=== PATIENT | female | born 1985 | race Caucasian/White ===

== ENCOUNTER 2024-08-29 17:39 | Emergency (ER) | payer OTHER, SELFPAY ==
[2024-08-29 17:59] VITALS: BP 183/85; PULSE 107; RESP 20; TEMP 36.8; O2SAT 97
--- NOTE | 2024-08-29 18:11 | ED_ITS ---
HPI - URI/Sore Throat General Chief Complaint: Upper Respiratory Infection Stated Complaint: Runny Nose/Cough/Congestion History of Present Illness HPI Narrative: patient is a 39-year-old female co past medical history significant for hypertension, presents to [facility] with 3 day history of URI symptoms, including nasal congestion, bilateral otalgia, sore throat and a dry cough. Her son is here as a patient as well and he has had similar symptoms for 5 days. This is her only known sick contacts she is taking [id number] cold medications with some relief. She has no chest pain or shortness of breath at this tie. She does report coughing fits acute difficult for her to cut her breath and have disrupted her sleep. She denies nausea vomiting diarrhea dysuria. She is not . Related Data Allergies Allergy/AdvReac Type Severity Reaction Status Date / Time aspirin Allergy THROAT Verified 08/29/24 18:05 SWELLING Review of Systems Constitutional: Comments: [place] feverish, did not confirm temperature was elevated at home ENT: Comments: refer to HPI Respiratory: Comments: refer to HPI Exam Const: General: healthy appearing Nutritional Appearance: well nourished Orientation/consciousness: patient oriented x3 Limitations: no limitations HENMT: Head: normal to inspection Ears: external ears normal, TM's normal bilaterally and TM abnormal ( TMs are retracted bilaterally, serous pattern present) Face/Nose/Sinus: Nasal discharge present ( clear nasal discharge bilaterally) Face and sinus: normal facial exam and sinuses nontender Mouth: Yes Normal oral and palatal mucosa present, Yes lip normal and Yes moist mucous membranes Teeth and gingiva: dentition normal Throat: posterior oropharynx normal and uvula midline Other: uvula midline Eyes: Conjunctivae: conjunctivae normal Pupils: Equal, round and reactive pupils present EOM: EOMs intact bilaterally Direct Ophthalmoscopy: no photophobia Neck: Neck: normal visual inspection, no lymphadenopathy and no meningeal signs Chest: Chest palpation & inspection: normal inspection of the chest Resp: Effort & Inspection: normal respiratory effort Auscultation: clear to auscultation bilaterally Cardio: Rate: regular rate Rhythm: regular rhythm GI: GI Palp: Yes Soft to palpation Urinary Catheter: Urinary Catheter: patent and draining Back/Spine/Pelvis: Back: no CVA tenderness Skin: General skin exam: normal color Rashes: no rashes Wounds: no wounds Neuro: General: patient oriented x3, moves all extremities, no meningeal signs, no focal motor deficits and CN's II-XI intact bilaterally Cranial nerves: Yes Nystagmus not present Speech: normal speech Gait exam (Neuro): Normal gait present Extrem: General: normal to inspection and no clubbing, cyanosis or edema Psych: Affect: normal affect Attitude: cooperative Course Course Emergency Course: suspect viral URI, will treat with short steroid course, cough suppressant, continue to push fluids at home. She will monitor her blood pressure at home as well as she attributes her elevated pressure to the cold medications she has been taking at home. She will follow-up with her PCP in 3-5 Days Level of Care: Express Care Visit ([id number]) Vital Signs Vital signs: Vital Signs Temperature 36.8 C 08/29/24 17:59 Pulse Rate 107 H 08/29/24 17:59 Respiratory Rate 20 08/29/24 17:59 Blood Pressure 183/85 H 08/29/24 17:59 Pulse Oximetry 97 08/29/24 17:59 Oxygen Delivery Room Air 08/29/24 17:59 Temperature 36.8 C 08/29/24 17:59 Pulse Rate 107 H 08/29/24 17:59 Respiratory Rate 20 08/29/24 17:59 Blood Pressure 183/85 H 08/29/24 17:59 Pulse Oximetry 97 08/29/24 17:59 Oxygen Delivery Room Air 08/29/24 17:59 MDM - URI/Sore Throat MDM Narrative Medical decision making narrative: prednisone for 5 days, promethazine DM Differential Diagnosis Differential diagnosis: Likely upper respiratory infection, otitis media, sinusitis, viral infection and pharyngitis Discharge Plan Discharge Clinical Impression: Upper respiratory infection Qualifiers: URI type: unspecified URI Qualified Code(s): J06.9 - Acute upper respiratory infection, unspecified Patient Disposition: Home Condition: Stable Instructions: Antibiotic Form, Upper Respiratory Infection (ED) Additional Instructions: PUSH FLUIDS, REST, COMPLETE STEROIDS PRESCRIBED. COUGH MEDICATION DIRECTED. SEE YOUR PRIMARY DOCTOR IN 3-5 DAYS IF SYMPTOMS NOT RESOLVING. CONTINUE TO MONITOR BLOOD PRESSURE AT HOME AND FOLLOW-UP WITH YOUR PRIMARY DOCTOR IF READINGS REMAIN ELEVATED ONCE YOUR FEELING IMPROVED Patient Language: Slovenian Prescriptions: New prednisone 20 mg tablet 40 mg PO DAILY 5 Days Qty: 10 0RF promethazine-DM 6.25-15 mg/5 mL syrup 5 ml PO Q4-6H PRN (Reason: cough) Qty: 118 0RF Follow-up/Referrals: Heriberto,Corrine Oro [Primary Care Provider] - Stand Alone Forms: Work/School Release IP Time of Disposition: 18:22
--- OUTSIDE RECORDS SUMMARY | 2024-08-29 18:27 | XMS_ITS | Encounter Summary ---
Author Organization [facility] Healthcare Address [address] [place] [address] Care Team Providers Care Pest Control Applicator Name Role Phone HeribertoCorrine CARLOS Primary Care Provider [phone] Miscellaneous, Not In File Unavailable Unava ilable Encounter Details Date Type Department Care Team (Late st Contact Info) Description 09/30/2023 [facility] Post Discharge Follow up phone call [facility] [address] [place] [address] [id number] Tiffanie Prado Social History Tobacco Use Types Packs/Day Years Used Date Smoking Tobacco: Every Day Cigarettes Smokeless Tobacco: Never Alcohol Use Standard Drinks/Week Comments Yes 0 (1 standard drink = 0.6 oz pur e alcohol) occasionally [facility] Utilities Answer Date Recorded In the past 12 months has e electric, gas, oil, or water powervault threatened to shut off services in your home? No 09/28/2023 Humiliation, Afraid, Rape, and Kick questionnair e Answer Date Recorded Within the last year, have y ou been afraid of your partner or ex-partner? No 09/28/2023 Within the last year, have y ou been humiliated or emotionally abused in other ways by your partner or ex-partner? No Within the last year, have y ou been kicked, hit, slapped, or otherwise physically hurt by your partner or ex-partner? No 09/28/2023 Within the last year, have y ou been raped or forced to have any kind of sexual activity by your partner or ex-partner? No 09/28/2023 Social Connection and Isolat ion Panel [NHANES] Answer Date Recorded In a typical week, how many times do you talk on the phone with family, friends, or neighbors? More than three times a week 09/28/2023 How often do you get togethe r with friends or relatives? More than three times a week 09/28/2023 How often do you attend chur ch or jew services? Never 09/28/2023 Do you belong to any clubs o r organizations such as hoahaoism groups, unions, fraternal or athletic groups, or school groups? No 09/28/2023 How often do you attend meet ings of the clubs or organizations you belong to? Never 09/28/2023 Are you , , di vorced, , never , or living with a partner? 09/28/2023 AUDIT-C Answer Date Recorded Q1: How often do you have a drink containing alc ohol? Monthly or less 09/28/2023 Q2: How many drinks containi ng alcohol do you have on a typical day when you are drinking? 3 or 4 09/28/2023 Q3: How often do you have si x or more drinks on one occasion? Never 09/28/2023 Overall Financial Resource Strain (CARDIA) Answe r Date Recorded How hard is it for you to pa y for the very basics like food, housing, medical care, and heating? Not hard at all 09/28/2023 PHQ-2 Answer Date Recorded PHQ-2 Total Score (If total score is 3 or more points, staff should administer the PHQ-9) 0 09/28/2023 [facility] - Occupational Stress Questionnaire Answer Date Recorded Do you feel stress - tense, restless, nervous, or anxious, or unable to sleep at night because your mind is troubled all the time - these days? Rather much 09/28/2023 Exercise Vital Sign Answer Date Recorde d On average, how many days pe r week do you engage in moderate to strenuous exercise (like a brisk walk)? 7 days 09/28/2023 On average, how many minutes do you engage in exercise at this level? 30 min 09/28/2023 Hunger Vital Sign Answer Date Recorded Within the past 12 months, y ou worried that your food would run out before you got the money to buy more. Never true 09/28/19 24 Within the past 12 months, t he food you bought just didn't last and you didn't have money to get more. Never true 09/28/2023 PRAPARE - Transportation Answer Date Re corded In the past 12 months, has l ack of transportation kept you from medical appointments or from getting medications? No 09/08 In the past 12 months, has l ack of transportation kept you from meetings, work, or from getting things needed for daily living? No 09/28/2023 Housing Stability Vital Sign Answer Mikie e Recorded In the last 12 months, was t here a time when you were not able to pay the mortgage or rent on time? No 09/22/2023 In the last 12 months, how many places have you lived? 1 09/22/2023 In the last 12 months, was t here a time when you did not have a steady place to sleep or slept in a mcc (including now)? No 09/22/2023 PHQ-9 Answer Date Recorded PHQ-9 Total Score 0 09/28/2023 Housing Stability Vital Sign Answer Mikie e Recorded In the last 12 months, was t here a time when you were not able to pay the mortgage or rent on time? No 09/28/2023 In the past 12 months, how m any times have you moved where you were living? 1 09/28/2023 At any time in the past 12 m [facility], were you homeless or living in a mcc (including now)? No 09/28/2023 Personal Safety Answer Date Recorded Have you ever been in or are you currently in a harmful physical or emotional relationship or is someone making you feel afraid or unsafe? Denies 09/21/2023 Education Answer Date Recorded What is the highest level of school you have completed or the highest degree you have received? GED or equivalent Comments No Sex and Gender Information Value Date Recorded Sex Assigned at Not on file Legal Sex Female 10:38 AM BEADWORKER Gender Identity Female 07/13/2023 8:14 AM BEADWORKER Sexual Orientation Not on file documented as of this encounter Plan of Treatment Not on file documented as of this encounter Visit Diagnoses Not on filedocumented in this encounter Care Teams Pest Control Applicator Relationship Specialty Start Date End Date Corrine Louis NP PCP - General Family Medicine 09/10/23 Miscellaneous, Not In File 09/24/23 documented as of this encounter
--- OUTSIDE RECORDS SUMMARY | 2024-08-29 18:27 | XMS_ITS | Clinical Summary ---
Author Organization [facility] Address [address] [place] [address] Care Team Providers Care Sous Chef Name Role Phone Amber Mcneil MD Primary Care Provider [phone] Source Comments [facility],non-owned Affiliates and Associated Physician Practices is amultiple site organization consisting of ambulatory clinics and hospital sitesin [place], [place], [place] and [place]. This disclosure is being madepursuant to the Care Everywhere program and may not contain all information available regarding this patient. Last updated 18.[facility] [employer] Allergies Active Allergy Reactions Criticality Noted Date Comments Aspirin Swelling 02/09/2012 Facial and hand swelling Medications * Be aware that medications may not be up to date on this document. Alwaysverify current medications with the patient. ibuprofen (MOTRIN) 600 MG tablet Take 1 Tab by mouth every 6 hours as needed for Pain. 30 Tab 3 3 Active etonogestrel (NEXPLANON) 68 MG implantIndicati ons:Nexplanon insertion 68 mg by Subdermal route once. 4 Active Active Problems Problem Noted Date Diagnosed Date Moderate dysplasia of cervix 08/31/2011 Resolved Problems Problem Noted Date Diagnosed Date Resolved Date Abnormal maternal glucose to lerance, antepartum 01/10/2013 06/16/2013 Encounter for supervision of other normal 09/21/2012 06/16/2013 Overview (03/17/2015): Complication of , antepartum 10/22/2011 03/28/2012 Overview (02/07/2015): FH of hemophilia with history of 08/31/2011 03/28/2012 Encounter for supervision of other normal 08/31/2011 03/28/2012 Overview (03/17/2015): Immunizations Immunization Administration Dates Next Due FLU VACCINE TRI IIV3 SPLIT PF IM (FLUVIRIN) 01/09,02/01/2012 PNEUMOCOCCAL PPSV23 02/18/2012 TDAP (7yrs+) 02/18/2012 Family History Medical History Relation Name Comments Diabetes Maternal Grandfather Heart Failure Maternal Grandfather Relation Name Status Comments Maternal Grandfather Social History Tobacco Use Types Packs/Day Years Used Date Smoking Tobacco: Every Day Cigarettes 0.3 5 Smokeless Tobacco: Never Tobacco Cessation:Ready to Q uit: No; Counseling Given: Yes Comments:Uses vapor cigarette Alcohol Use Standard Drinks/Week Comments No 0 (1 standard drink = 0.6 oz pur e alcohol) Comments No Sex and Gender Information Value Date Recorded Sex Assigned at Not on file Legal Sex Female 1:56 PM CITY BAILIFF Gender Identity Not on file Sexual Orientation Not on file Last Filed Vital Signs Vital Sign Reading Time Taken Comments Blood Pressure 124/78 07/07/2013 12:00 PM CITY [employer]AIL[employer] Pulse 90 04/14/2013 3:45 PM CITY [employer]AIL[employer] Temperature 36.6 C (97.8 F) 04/14/2013 3:45 PM CITY BAIL[employer] Respiratory Rate 16 04/14/2013 3:45 PM CITY [employer]AIL[employer] Oxygen Saturation 98% 04/12/2013 10:20 PM [employer] Inhaled Oxygen Concentration - - Weight 115.7 kg (255 lb) 07/07/2013 12:00 PM [employer] Height 167.6 cm (5' 6 ) 04/11/2013 2:56 PM CITY [employer]AIL[employer] Body Mass Index 41.16 04/11/2013 2:56 PM CITY [employer]AIL[employer] Plan of Treatment Health Maintenance Due Date Last Done Comments HEPATITIS C SCREENING 01/27/2003 HEPATITIS B VACCINE (1 of 3 - 19+ 3-dose series) 02/01/2004 DTAP/TDAP/TD VACCINES (2 - T d or Tdap) 02/17/2022 02/18/2012 COVID-19 VACCINE (2023-2 5 season) 2024 DEPRESSION SCREENING 05/10/2024 INFLUENZA VACCINE (Season Ended) 2025 2013, 02/01/2012 ZOSTER VACCINE (1 of 2) 2035 PNEUMOCOCCAL VACCINE Aged Out 02/18/2012 No long er eligible based on patient's age to complete this topic HIV SCREENING Completed 09/14/2012, 07/29/2011 HIB VACCINE Aged Out No longer eligi ble based on patient's age to complete this topic HPV VACCINE Aged Out No longer eligi ble based on patient's age to complete this topic MENINGOCOCCAL (Group B) VACCINE SHARED DECISION-MAKING Aged Out No longer eligible based on patient's age to complete this topic MENINGOCOCCAL GROUPS A/C/Y/W VACCINE Aged Out No longer eligible b ased on patient's age to complete this topic Procedures Procedure Name Priority Date/Time Associated Diagnosis Comments PROFILE W T PALLIDUM W HIV Routine 09/14/2012 9:46 AM CDT Absence of menstruation from Last 3 Months or Most Recently Relevant to Health Maintenance Results * PROFILE W T PALLIDUM W HIV (POREFLAB) (09/14/2012 9:46 AM CDT) Hepatitis B Virus Surface Antigen Negative Negative [facility] INSURANCE BILL Rubella Antibody 11 IU/mL [facility] INSURANCE BILL Comment: Non-immune <5 Equivocal 5 - 9 Immune >9 ABO A [facility] INSURANCE BILL Rh Type Positive [facility] INSURANCE BILL Comment: Please note: Prior records for this patient's ABO / Rh type are not available for additional verification. Antibody Screen Negative Negative [facility]URANCE BILL Treponema pallidum Antibody EIA Negative Negative [facility] INSURANCE BILL HIV-1 Antibody O.D. Ratio <1.00 <1.00 [facility] INSURANCE BILL Comment:Index Value: Specime n reactivity relative to the negative cutoff. HIV-1/HIV-2 Non Reactive Non Reactive [facility] INSURANCE BILL WBC 10.5 4.0 - 10.5 x10E3/uL [facility] INSURANCE BILL RBC 4.47 3.77 - 5.28 x10E6/uL [facility] INSURANCE BILL Hemoglobin 12.5 11.1 - 15.9 g/dL [facility] INSURANCE BILL Hematocrit 39.0 34.0 - 46.6 % [facility] INSURANCE BILL MCV 87 79 - 97 fL [facility] INSURANCE BILL MCH 28.0 26.6 - 33.0 pg [facility] INSURANCE BILL MCHC 32.1 31.5 - 35.7 g/dL [facility] INSURANCE BILL RDW 14.1 12.3 - 15.4 % [facility] INSURANCE BILL Platelet Count 243 140 - 415 x10E3/uL [facility] INSURANCE BILL Granulocytes % 66 40 - 74 % [facility] INSURANCE BILL Lymphocytes % 26 14 - 46 % [facility] INSURANCE BILL Monocytes % 6 4 - 13 % [facility] INSURANCE BILL Eosinophils % 2 0 - 7 % [facility] INSURANCE BILL Basophils % 0 0 - 3 % [facility] INSURANCE BILL Immature Cells NOT NEEDED [facility]URANCE BILL Comment:Ancillary determined the test is not needed Granulocytes Absolute 6.9 1.8 - 7.8 x10E3/uL [facility] INSURANCE BILL Lymphocytes Absolute 2.8 0.7 - 4.5 x10E3/uL [facility] INSURANCE BILL Monocytes Absolute 0.6 0.1 - 1.0 x10E3/uL [facility] INSURANCE BILL Eosinophils Absolute 0.2 0.0 - 0.4 x10E3/uL [facility] INSURANCE BILL Basophils Absolute 0.0 0.0 - 0.2 x10E3/uL [facility] INSURANCE BILL Immature Granulocytes 0 0 - 2 % [facility] INSURANCE BILL Immature Granulocytes Absolute 0.0 0.0 - 0.1 x10E3/uL [facility] INSURANCE BILL nRBC NOT NEEDED [facility] INSURANCE BILL Comment:Ancillary determined the test is not needed Comment Hematology NOT NEEDED [facility] INSURANCE BILL Comment:Ancillary determined the test is not needed BLOOD SPECIMEN / Unknown 09/14/2012 9:46 AM CDT 09/14/2012 7:29 PM CDT Narrative Resulting Agency Comment [facility] [address] [facility] [phone] Philip Madrigal Jr., MD LAB - SEROLOGY ORDERA BLES Final Result [facility] INSURANCE BILL [address] [place] [id number] from Last 3 Months or Most Recently Relevant to Health Maintenance [place] [employer] Advance Directives * FULL RESUSCITATION (Latest Code Status on File) Date Activated Date Inactivated Comments 04/11/2013 6:17 PM 04/14/2013 5:50 PM * FULL RESUSCITATION Date Activated Date Inactivated Comments 04/11/2013 3:03 PM 04/11/2013 6:17 PM * FULL RESUSCITATION Date Activated Date Inactivated Comments 04/01/2013 4:05 PM 04/01/2013 7:03 PM * FULL RESUSCITATION Date Activated Date Inactivated Comments 02/18/2012 3:50 AM 02/20/2012 1:14 PM * FULL RESUSCITATION Date Activated Date Inactivated Comments 02/18/2012 3:08 AM 02/18/2012 3:50 AM Care Teams Sous Chef Relationship Specialty Start Date End Date Amber Mcneil MD [address] [place] [address] PCP - General 12/02/11
--- OUTSIDE RECORDS SUMMARY | 2024-08-29 18:27 | XMS_ITS | Data Portability ---
Author Organization MD - [facility], [facility] Address [address] [facility] [place] [address] Care Team Providers Care Building Maintenance Supervisor Name Role Phone MARIE HOLLY Primary Care Provider ISABEL MEJÍA Endoscopy Technican Assessment No assessment recorded. Plan of Treatment Reminders Order Date Submit Date Provider Last Modified By Organization Details Last Modified Time Details Appointments None recorded. Lab CT + NG + TV, DNA, urine/swa b 2017 018 [facility], [address] [place] [address], [place], [address], 8 12:10:39 HIV 1+2 AB + HIV 1 p24 Ag, qualitati ve immunoass ay, serum 2017 018 [facility], [address] [place] [address], [place], [address], 8 08:16:03 RPR (rapid plasma reagin), serum 2017 018 [facility], [address] [place] [address], [place], [address], 8 08:16:03 HBsAg (hepatiti s B surface Ag), EIA, serum 2017 018 [facility], [address] [place] [address], [place], [address], 8 08:16:04 hepatitis C Ab, signal-to -cutoff, serum or plasma 2017 018 [facility], [address] [facility], [address], [place], [address], 8 08:16:04 Referral None recorded. Procedures None recorded. Surgeries tubal ligation (SURG) 2017 018 [email or web address] Not available 8 12:28:16 Imaging None recorded. Medication Orders medroxypr ogesteron e 150 mg/mL intramusc ular syringe 2017 018 [email or web address] [facility], [facility], [address] [place], [address], 8 11:33:15 medroxypr ogesteron e 150 mg/mL intramusc ular syringe 2017 018 [email or web address] [facility], [address] [place], [address], 8 11:18:41 medroxypr ogesteron e 150 mg/mL intramusc ular syringe 2017 018 [facility], [address] [place], [address], 8 09:18:13 medroxypr ogesteron e 150 mg/mL intramusc ular syringe 2017 018 [facility], [address] [place], [address], 8 09:57:02 Patient TargetsNo targets recorded. Patient Instructions Encounter Date Encounter Id Patient Instructions Last Modified By Organization Details Last Modified Time 06/18/2017 [id number] Patient here for annual no pap per guidelines encouraged sbe accepts std testing discussed contraception, patient requesting sterilization, I am 150% I don't want any more. Will have time off of work in August during which to have procedure done, advised to come back to meet with surgeon within a month of that time. Happy with depo until then. f/u in 1 year or as needed. Not available 06/18/2017 14:58:41 Reason for Referral None Reported. Results Created Date Observation Date Name Description Value Unit Range Abnormal Flag Note LastModifiedBy Organization Detail LastModifiedTime 06/18/19 18 06/22/2017 CT + NG + TV, DNA, urine /swab chlamydia by MAGDIEL Negati ve negati ve Not Available [facility] ([facility]) [address] [place], [address], 06/22/2017 12:10:39 06/18/19 18 06/22/2017 CT + NG + TV, DNA, urine /swab gonococcus by MAGDIEL Negati ve negati ve Not Available [facility] ([facility]) [address] [place], [address], 06/22/2017 12:10:39 06/18/19 18 06/22/2017 CT + NG + TV, DNA, urine /swab trich vag by MAGDIEL Negati ve negati ve Not Available [facility] ([facility]) [address] [place], [address], 06/22/2017 12:10:39 06/25/19 18 06/26/2017 RPR (rapi d plasm a reagi n), serum RPR Non Reacti ve non reacti ve Not Available [facility] ([facility]) [address] [place], [address], 06/26/2017 08:16:03 06/25/19 18 06/26/2017 HIV 1+2 AB + HIV 1 p24 Ag, quali tativ e immun oassa y, serum HIV screen 4TH generation wrfx Non Reacti ve non reacti ve Not Available [facility] ([facility]) [address] [place], [address], 06/26/2017 08:16:03 06/25/19 18 06/25/2017 hepat itis C Ab, signa l-to- cutof f, serum or plasm a comment: Commen t Non react pushpa HCV antib stephanie scree n is consi stent with no HCV infec tion, unles s recen t infec tion is suspe cted or other evide nce exist s to indic ate HCV infec tion. Not Available [facility] ([facility]) [address] [facility], [place], [address], 06/26/2017 08:16:04 06/25/19 18 06/26/2017 hepat itis C Ab, signa l-to- cutof f, serum or plasm a HCV Ab <0.1 s/co_ ratio 0.0-0. 9 Not Available [facility] ([facility]) [address] [facility], [place], [address], 06/26/2017 08:16:04 06/25/19 18 06/26/2017 HBsAg (hepa titis B surfa ce Ag), EIA, serum HBsAg screen Negati ve negati ve Not Available [facility] ([facility]) [address] [facility], [place], [address], 06/26/2017 08:16:04 Result Notes None recorded. Problems Name Problem SNOMED Code Status Onset Date Resolution Date Notes Provider Name and Address Organization Details Recorded Time Amblyopia 263416932 Active 2015 MD Teo Villalobos [facility] 6 10:45:59 Abnormal cervical Papanicola ou smear 369049702 Active 2015 PER PT MD Teo Villalobos [facility] 6 10:46:06 Gestationa l diabetes mellitus 98047541 Active 2015 H/O MD Teo Villalobos [facility] 6 10:46:13 Anemia 542020868 Active 2016 PATIENT HAD BLOOD TRANSFUSIO N X2 MD Teo Streeter [facility] 7 11:59:42 Problem Notes None recorded. Procedures Surgical History Date Name Laterality Status Provider Name and Address Organization Details Recorded Time 12/09/19 17 Nexplanon Removal completed Gamaliel RUSH [facility] 12/08/2016 11:09:30 11/25/19 17 Endometrial Biopsy completed Gamaliel Bruce [facility] 11/24/2016 12:21:59 06/24/19 17 Nexplanon completed Isabel Mejía [address]erta, [place], [address], MD Bruce [facility] 06/24/2016 12:13:37 06/23/19 17 Nexplanon completed Gamaliel [facility] 06/23/2016 09:36:36 06/23/19 17 Nexplanon Removal completed Gamaliel RUSH [facility] 06/23/2016 09:35:58 Unlisted px ant segment eye completed Luis M [facility] 04/09/2016 10:41:05 D&C completed Luis M [facility] 04/09/2016 10:41:26 Imaging Results None recorded. Procedure Notes None recorded. Medical Equipment None Reported. Allergies No known drug allergies Medications Name Sig Start Date Stop Date Status Note LastModified by Organization Details LastModified Time amoxicill in 500 mg capsule 04/09 completed Not Available Not Available Not Available Mapap Extra Strength 500 mg tablet 06/18 completed Not Available Not Available Not Available doxycycli ne hyclate 100 mg capsule 12/08 completed Not Available Not Available Not Available cetirizin e 10 mg tablet 11/03 completed Not Available Not Available Not Available atorvasta tin 10 mg tablet TAKE ONE TABLET BY MOUTH DAILY active Not Available Not Available No t Available azithromy joe 250 mg tablet 11/03 completed Not Available Not Available Not Available ibuprofen 800 mg tablet active Not Available Not Available Not Available FreeStyle Lancets 28 gauge active Not Available Not Available Not Available prednison e 20 mg tablet 04/09 completed Not Available Not Available Not Available amoxicill in 875 mg tablet 06/18 completed Not Available Not Available Not Available Xylocaine 10 mg/mL (1 %) injection solution Take 3 mL by injectio n route. 06/18 completed Not Available Not Available Not Available cephalexi n 500 mg capsule Take 1 capsule twice a day by oral route for 7 days. 11/03 completed Not Available Not Available Not Available ferrous sulfate 325 mg (65 mg iron) tablet Take 1 tablet 3 times a day by oral route. active Not Available Not Available No t Available propranol ol ER 80 mg capsule,2 4 hr,extend ed release TAKE ONE CAPSULE BY MOUTH DAILY active Not Available Not Available No t Available Xylocaine 20 mg/mL (2 %) injection solution Take 4 mL by injectio n route. 06/24 completed [facility] [id number] 0-01, TO BE INSERTED BY PROVIDER - KPDANIEL RN Not Available Not Available Not Available Diabetic Tussin DM 10 mg-100 mg/5 mL oral liquid active Not Available Not Available Not Available norethind zurdo acetate 5 mg tablet Take 1 tablet twice a day by oral route for 14 days. 06/18 completed Not Available Not Available Not Available methylpre dnisolone 4 mg tablets in a dose pack 06/18 completed Not Available Not Available Not Available fluticaso ne propionat e 50 mcg/actua tion nasal spray,shannon pension 11/03 completed Not Available Not Available Not Available metformin ER 500 mg tablet,ex tended release 24 hr TAKE 1 TABLET BY MOUTH TWICE A DAY WITH BREAKFAS T AND DINNER active Not Available Not Available No t Available doxycycli ne hyclate 100 mg tablet Take 1 tablet twice a day by oral route for 10 days. 06/18 completed Not Available Not Available Not Available medroxypr ogesteron e 150 mg/mL intramusc ular syringe INJECT 1 ML EVERY 3 MONTHS BY INTRAMUS CULAR ROUTE. 2017 active [facility] [id number] 8 2 MMEALS RN Not Available Not Available Not Available ProAir HFA 90 mcg/actua tion aerosol inhaler 04/09 completed Not Available Not Available Not Available FreeStyle Lite Strips active Not Available Not Available Not Available FreeStyle [place] Lite kit TEST DIRECTED TWICE A DAY active Not Available Not Available No t Available Plus (calcium carbonate ) 27 mg iron-1 mg tablet TAKE ONE TABLET BY MOUTH DAILY 06/18 completed Not Available Not Available Not Available Nexplanon 68 mg subdermal implant Inject 1 implant by subcutan eous route. 06/18 completed [facility]# [id number] 0-01. DEB GALVINIS SCHEDULE D FOR REMOVAL ON: 06/24/19 Not Available Not Available Not Available Vitals Date Recorded Body height Heart rate Systolic blood pressure Diastolic blood pressure Provider Name and Address Organization Details Last Updated DateTime 05/19/2017 170.18 cm 88 /min 136 mm[Hg] 89 mm[Hg] Nadiya Bruce [facility] 05/19/2017 08:53:09 Date Recorded Body height Body mass index (BMI) Body weight Heart rate Systolic blood pressure Diastolic blood pressure Provider Name and Address Organization Details Last Updated DateTime 8 170.18 cm 44 kg/m2 343155. 46 g 108 /min 159 mm[Hg] 89 mm[Hg] Kelsy Bruce [facility] 8 14:24:32 Date Recorded Body height Body mass index (BMI) Body weight Heart rate Systolic blood pressure Diastolic blood pressure Provider Name and Address Organization Details Last Updated DateTime 8 170.18 cm 43.7 kg/m2 903484. 99 g 101 /min 126 mm[Hg] 83 mm[Hg] Ирина Bruce [facility] 8 11:01:56 Date Recorded Body height Heart rate Systolic blood pressure Diastolic blood pressure Provider Name and Address Organization Details Last Updated DateTime 01/24/2018 170.18 cm 87 /min 140 mm[Hg] 87 mm[Hg] Olga Bruce [facility] 01/24/2018 09:24:11 Social History Question Answer Notes LastModified by Organizat ion Details LastModified Time Tobacco Smoking Status Former Smoker QUIT OVER A YEAR AGO MD Teo Villalobos [facility] 04/09/2016 10:39:26 Do You Have An Advance Directive? No [email or web address] Information not available 11/03/2016 What Is Your Level Of Alcohol Consumption? None Information not available 04/09/2016 Is Blood Transfusion Acceptable In An Emergency? Yes [email or web address] Information not available 04/09/2016 What Is Your Level Of Caffeine Consumption? Moderate [email or web address] Information not available 04/09/2016 What Type Of Diet Are You Following? REGULAR [email or web address] Information not available 04/09/2016 Which Illicit Or Recreational Drugs Have You Used? DENIES [email or web address] Information not available 04/09/2016 Education 12 Information no t available 04/09/2016 What Is Your Occupation? UNEMPLOYED [email or web address] Information not available 04/09/2016 Spiritual/Cultur al Values That May Prevent Patient From Following Plan Of Care: No [email or web address] Information not available 04/09/2016 Learning Preferences (Visual, Written, Hearing, Practicing) ALL OF THE ABOVE [email or web address] Information not available 04/09/2016 E-Cigarette Or Nicotine Vaporizer Usage? No [email or web address] Information not available 04/09/2016 How Often Do You Need Assistance To Complete Medical Paperwork/docume nts? Never [email or web address] Information not available 11/03/2016 Have You Fallen In The Last 3 Months? No [email or web address] Information not available 11/03/2016 Marital Status [email or web address] Informatio n not available 04/09/2016 What Was The Date Of Your Most Recent Tobacco Screening? 06/18/2017 Information not available 12/01/2018 Seat Belts Used Routinely Yes [email or web address] Information not available 04/09/2016 How Much Tobacco Do You Smoke? 0.5 PPD [email or web address] Information not available 04/09/2016 General Stress Level Medium [email or web address] Information not available 04/09/2016 How Many Years Have You Smoked Tobacco? 10 [email or web address] Information not available 04/09/2016 Have You Recently (within The Last 12 Weeks, Or During A Current ) Traveled To Or Lived In A Zika-affected Area? No [email or web address] Information not available 04/09/2016 Sex: Female Functional Status Question Answer Note LastModified by Organizat ion Details LastModified Time What is your exercise level? Occasional Information not available 04/09/2016 Mental Status None recorded. Family History Relationship Description Onset Age of this Age Resolved Age Notes LastModified by Organization Details LastModified Time Mother Malignant neoplastic disease CERVIC [place] [email or web address] Not available 04/09/2016 10:38:33 Mother Diabetes mellitus [email or web address] Not available 2015 10:38:39 Mother Heart murmur Not avail able 04/09/2016 10:38:46 Brother Hemophilia [email or web address] Not availa ble 04/09/2016 10:39:02 Brother Hemophilia [email or web address] Not availa ble 04/09/2016 10:39:02 Medical History Condition Response Last Pap Smear Y Colonoscopy N Bone Mineral Density Exam N Depression N Glaucoma N Anemia N Sickle Cell Anemia N breast cancer N blood dyscrasias N Anxiety Disorder N Diabetes N Tuberculosis (TB) N uterine cancer N Arthritis N Abnormal Pap Smear Y Hyperlipidemia N Asthma N HbA1c N ovarian cancer N PAP Y Thyroid Disorder N High Cholesterol N Lipid Panel N cervical cancer N blood transfusions Y Hypertension N Osteoporosis N Mammogram N Gynecological History Statement/Question Response Age at Menarche 12 Current Control Method Depo-Shipping Support Clerk a Date of LMP 10/25/2016 Current Control Methods Depo prove ra Obstetrics History GPAL:G 3 P 2 0 1 2 Type Value Multiple Births 0 Full Term 2 Induced 0 Spontaneous 1 Premature 0 Living 2 Ectopics 0 Total 3 Past Encounters Encounter ID Performer Location Encounter Start Date Encounter Closed Date Diagnosis/Indication Diagnosis SNOMED-CT Code Diagnosis ICD10 Code Diagnosis Note [id number] Cesia Peter [facility] [address] [place] [address] 04/09/2016 10:05:42 04/09/2016 11:46:32 Gynecologic examination 96690471 Z01.419 Counseled patient regarding HPV and and pap smear screening and what that means. DIscussed meaning of abnormal pap smears and the benefit of appropriat e screening. Pt verbalizes understand ing of role of pap smear testing and preventing cervical cancer. Galactorrh ea not associated with childbirth 13087379 N64.3 b/l green nipple discharge. fasting labs. will consider breast surgery referral when pt returns. pt verbalizes understand ing Contracept ion care management 801445849 Z30.9 pt due for replacemen t by 07/02/2016. desires to have replaced [id number] Gamaliel Dang [facility] [address] [place] [address] 06/23/2016 08:59:26 06/23/2016 09:44:59 Insertion of subcutaneous contraceptive 278661864 Z30.9 Removal of subcutaneous contraceptive done 4362387290 08317 Z98.001 [id number] Isabel Mejía [facility] [address] [place] [address] 06/24/2016 11:29:05 06/24/2016 12:52:52 Subcutaneous contraceptive implant present 681769035 Z97.8 [id number] Gamaliel Dang [facility] [address] [place] [address] 11/03/2016 10:25:17 11/03/2016 11:29:07 Menorrhagia 304953630 N92.0 [id number] Gamaliel Dang [facility] [address] [place] [address] 11/24/2016 11:26:43 11/24/2016 12:40:16 Break-through bleeding 27139083 N92.1 Menorrhagia 475899879 N9 2.0 Anemia 633486901 D64.9 [id number] Gamaliel Dang [facility] [address] [place] [address] 12/01/2016 09:42:35 12/01/2016 10:08:40 Menorrhagia 312480571 N92.0 [id number] Gamaliel Dang [facility] [address] [place] [address] 12/08/2016 10:36:27 12/08/2016 12:00:46 Contraception care management 292205644 Z30.9 [id number] Gamaliel Dang [facility] [address] [place] [address] 12/08/2016 11:24:32 12/09/2016 09:34:11 Contraception care 809879189 Z30.40 [id number] Gamaliel Dang [facility] [address] [place] [address] 03/02/2017 08:24:30 03/02/2017 08:55:56 Contraception care management 995023740 Z30.9 [id number] Gamaliel Dang [facility] [address] [place] [address] 05/19/2017 08:31:11 05/19/2017 14:04:12 Contraception care 356294842 Z30.40 [id number] Angi Hitchcock [facility] [address] [place] [address] 06/18/2017 14:11:42 06/18/2017 14:58:20 Gynecologic examination 59988726 Z01.411 Contraception care 45008 5005 Z30.40 Venereal d isease screening 104104780 Z11.3 [id number] Gamaliel Dang [facility] [address] [facility] [place] [address] 08/10/2017 08:26:13 08/10/2017 14:44:59 Contraception care 025360562 Z30.40 [id number] Angi Hitchcock [facility] [address] [facility] [place] [address] 11/01/2017 10:44:42 11/01/2017 11:06:29 Contraception care management 165053280 Z30.9 [id number] Aimee Silva [facility] [address] [facility] [place] [address] 01/24/2018 09:00:54 01/24/2018 09:27:58 Contraception care 574599819 Z30.40 Health Concerns Section Related Observation LastModified by Organization Detai ls LastModified Time None Recorded Concern Status LastModified by Organization Details LastModified Time None Recorded Advance Directives Directive N: Payers Encounter Date Sequence Insurance Name Policy Number Policy Pitts Covered Member ID Pitts Member ID Guarantor Name 05/19/2017 1 [facility] [employer] (MEDICAID HMO) [id number] Amber Reeves [id number] Amebr Reeves 06/18/2017 1 [facility] (MEDICAID HMO) [id number] Amber Reeves [id number] Amber Reeves 08/10/2017 1 [employer] Amber Reeves [id number] Amber Reeves 11/01/2017 1 [employer] Amber Reeves [id number] Amber Reeves 01/24/2018 1 [employer] Amber Reeves [id number] Amber Reeves Notes Date Note Type Note Provider Name and Address Organization Details Recorded Time 06/18/2017 text/html Patient her for annual. reports no new sexual partners x7 years. Angi [email or web address] MD - [facility] 06/18/2017 14:59:27 OBGyn Episode Ob Episode Information Episode Created Date Number of Fetuses Patient Bloodtype Patient rh Status Prepregnancy Weight lbs Domestic Partner Domestic Partner Phone Father Name Engineer Process Status 06/18/19 18 1 CLOSED Fetus Data First Name Last Name Admitted to NICU Weight (g) Sex Living Outcome Pediatric Complications Fetus ID Race Codes Race Delivery Type M Full Term [id number] vaginal Manuel Calculation Initial Manuel Date Initial Exam Date Initial Exam Provider Initial Ultrasound Date Last Menstrual Period Date Ultra Sound Weeks Gestation 0 Eighteen To Twenty Week Manuel Update Ultra Sound Date Fundal Height At Umbil Quickening Date Ultra Sound Latest Weeks Gestation Final Manuel Confirmed By Final Manuel Confirmed Date Final Manuel Date Ultra Sound Latest Days Gestation 0 0 Menstrual History Last Menstrual Date Menses Monthly On Bcp Conception Prior Menses Frequency Hcg Plus Date Menarche Onset Age Delivery Information Delivery Date Delivery Type Labor Anesthesia Weeks Gestation Incision Type Labor Labor Length Hrs Delivered By Post Complications Tubal Sterilization Discharge Date Comments 2 Discharge Information Feeding Method Contraceptive Method Maternal HG B and HCT Levels Ob Episode Information Episode Created Date Number of Fetuses Patient Bloodtype Patient rh Status Prepregnancy Weight lbs Domestic Partner Domestic Partner Phone Father Name Engineer Process Status 06/18/19 18 1 CLOSED Fetus Data First Name Last Name Admitted to NICU Weight (g) Sex Living Outcome Pediatric Complications Fetus ID Race Codes Race Delivery Type F Full Term [id number] vaginal Manuel Calculation Initial Manuel Date Initial Exam Date Initial Exam Provider Initial Ultrasound Date Last Menstrual Period Date Ultra Sound Weeks Gestation 0 Eighteen To Twenty Week Manuel Update Ultra Sound Date Fundal Height At Umbil Quickening Date Ultra Sound Latest Weeks Gestation Final Manuel Confirmed By Final Manuel Confirmed Date Final Manuel Date Ultra Sound Latest Days Gestation 0 0 Menstrual History Last Menstrual Date Menses Monthly On Bcp Conception Prior Menses Frequency Hcg Plus Date Menarche Onset Age Delivery Information Delivery Date Delivery Type Labor Anesthesia Weeks Gestation Incision Type Labor Labor Length Hrs Delivered By Post Complications Tubal Sterilization Discharge Date Comments 3 Discharge Information Feeding Method Contraceptive Method Maternal HG B and HCT Levels
--- OUTSIDE RECORDS SUMMARY | 2024-08-29 18:27 | XMS_ITS | Referral Summary ---
Author Organization [facility] Address [address] [facility] [address] [place] [phone] Phone Care Team Providers Care Special Tax Auditor Name Role Phone Corrine Louis NP Primary Care Provider Miscellaneous, Not In File Unavailable Unava ilable Encounters Date Type Department Care Team Description 08/09/2024 Telephone [facility] [address] [place] [address] Corrine Louis, TROUBLE LINEMAN Reschedule Appointment from Last 3 Months Allergies Active Allergy Reactions Criticality Noted Date Comments Aspirin Swelling High 09/10/2023 Medications albuterol HFA (PROVENTIL HFA,VENTOLIN HFA,PROAIR HFA) 90 mcg/actuation inhalerIndications :Acute cough Inhale 2 puffs every 6 (six) hours as needed for wheezing 1 each 09/10/19 025 Active SUMAtriptan (IMITREX) 50 mg tabletIndications: Migraine without aura and without status migrainosus, not intractable Take 1 tablet (50 mg total) by mouth once as needed for migraine May repeat after 2 hours. 9 tablet 1 09/10/19 24 025 Active metFORMIN (GLUCOPHAGE) 500 mg tabletIndications: Type 2 diabetes mellitus with hyperglycemia, without long-term current use of insulin (HCC) Take 1 tablet (500 mg total) by mouth daily with breakfast 90 tablet 1 09/14/19 025 Active atorvastatin (LIPITOR) 10 mg tabletIndications: Mixed hyperlipidemia Take 1 tablet (10 mg total) by mouth daily 90 tablet 1 09/14/19 24 025 Active Additional Information Patient taking differently:10 mg oralNightly, Reported on 09/21/2023 acetaminophen (TYLENOL) 500 mg tablet Take 1 tablet (500 mg total) by mouth every 6 (six) hours as needed for pain or headaches Active ibuprofen 200 mg tab/cap Take 2 tablet/capsule (400 mg total) by mouth every 6 (six) hours as needed for pain or headaches Active ferrous sulfate 325 mg (65 mg of elemental iron) tabletIndications: Iron Deficiency Anemia Take 1 tablet (325 mg total) by mouth daily with breakfast 30 tablet 2 09/25/19 24 025 Active lisinopriL (PRINIVIL,ZESTRIL) 5 mg tablet Take 1 tablet (5 mg total) by mouth daily 30 tablet 09/24/19 24 Active blood-glucose meter (FreeStyle [place] Lite) kit TEST DIRECTED TWICE A DAY Active FreeStyle Lite Strips strip Active lancets (freestyle) 28 gauge misc Active Active Problems Problem Noted Date Diagnosed Date Hypertension, essential 09/28/2023 Assessment & Plan (09/28/2023 3:37 PM CDT): Stable, well controlled; blood pressure at target today Certain medication hospital Continue lisinopril 5 mg daily; will continue to monitor if symptoms improve Class 3 severe obesity due t o excess calories with serious comorbidity and body mass index (BMI) of 45.0 to 49.9 in adult 09/28/2023 Assessment & Plan (11/09/2023 12:28 PM CDT): Stable, improving; trending down Encouraged continued dietary changes, including low-calorie foods, portion control; continue 30 minutes moderate intensity exercise 5 days per week Assessment & Plan (09/28/2023 3:37 PM CDT): Weight is stable, down slightly; patient has had significant nausea associated with antibiotics Will continue to monitor as patient improves from side effects from medications Cellulitis of left leg 09/22/2023 Assessment & Plan (09/28/2023 3:38 PM CDT): Stable, generally improving; continues some mild erythema; no warmth, some tenderness to palpation; has significant swelling, masslike effect in lower ankle, radiating from anterior aspect of cox to medial malleolus Has been having side effects from medication, encouraged patient to take last dose Keflex, expect nausea to resolve once off medication Will get imaging of left ankle to evaluate for mass as well as other possible or deeper infections Hyponatremia 09/22/2023 Type 2 diabetes mellitus wit hout complication, without long-term current use of insulin 09/22/2023 Microcytic anemia 09/22/2023 Migraine without aura and wi thout status migrainosus, not intractable 09/10/2023 Assessment & Plan (09/10/2023 5:20 PM CDT): Becoming more frequent; can be debilitating Sumatriptan as needed Excedrin Migraine when not full blown migraine Gestational diabetes mellitus 04/08/2016 Assessment & Plan (09/10/2023 5:22 PM CDT): Never had follow up labs Amblyopia 04/08/2016 Abnormal cervical Papanicolaou smear 04/08/2016 Moderate dysplasia of cervix 08/31/2011 Assessment & Plan (09/10/2023 5:19 PM CDT): Had one abnormal pap; follow ups were normal Last pap 2016 Referral to [facility] placed Resolved Problems Problem Noted Date Diagnosed Date Resolved Date Sepsis without acute organ d ysfunction, due to unspecified organism 09/21/2023 10/27/2023 Anemia 11/24/2016 09/22/2023 Overview (08/31/2023): PATIENT HAD BLOOD TRANSFUSION X2 Immunizations Immunization Administration Dates Next Due Influenza, Trivalent, Preser vative Free, Intramuscular 2013,02/01/2012 Influenza, Unspecified 09/08/2023(Deferr ed: Patient Refused),03/11/2023(Deferred: Patient Refused),02/07/2022(Deferred: Patient Refused) Pneumococcal Polysaccharide PPV23 02/18/2012 Tdap 02/18/2012 Social History Tobacco Use Types Packs/Day Years Used Date Smoking Tobacco: Every Day Cigarettes Smokeless Tobacco: Never Tobacco Cessation:Ready to Q uit: Not Asked; Counseling Given: Not Answered Alcohol Use Standard Drinks/Week Comments Yes 0 (1 standard drink = 0.6 oz pur e alcohol) occasionally [facility] Utilities Answer Date Recorded In the past 12 months has th e [employer], gas, oil, or water company threatened to shut off services in your [...] week 09/28/2023 How often do you attend [facility] or jain services? Never 09/28/2023 Do you belong to any clubs o r organizations such as yarsanism groups, unions, fraternal or athletic groups, or [...] staff should administer the PHQ-9) 0 09/28/2023 [facility] - Occupational Stress Questionnaire Answer Date Recorded [...] place to sleep or slept in a fci (including now)? No 09/22/2023 PHQ-9 Answer Date [...] were you homeless or living in a fci (including now)? No 09/28/2023 Personal Safety Answer [...] on file Legal Sex Female 10:38 AM [employer] Gender Identity Female 07/13/2023 8:14 AM [employer] C[employer] Sexual Orientation Not on file Last Filed Vital Signs Vital Sign Reading Time Taken Comments Blood Pressure 134/80 10/27/2023 10:33 AM CDT Pulse 102 10/27/2023 10:33 AM CDT Temperature 36.6 C (97.9 F) 10/27/2023 10:33 AM CDT Respiratory Rate 18 10/27/2023 10:33 AM CDT Oxygen Saturation 97% 10/27/2023 10:33 AM CDT Inhaled Oxygen Concentration - - Weight 132.5 kg (292 lb) 10/27/2023 10:33 AM CDT Height 167.6 cm (5' 6 ) 10/27/2023 10:33 AM CDT Body Mass Index 47.13 10/27/2023 10:33 AM CDT Plan of Treatment Not on file Procedures Procedure Name Priority Date/Time Associated Diagnosis Comments EGFR Routine 09/24/2023 2:46 AM CDT HEPATITIS C ANTIBODY Routine 09/13/2023 1:21 PM CDT Need for hepatitis C screening test HEMOGLOBIN A1C Routine 09/13/2023 1:21 PM CDT History of gestational diabetes LIPID PANEL Routine 09/13/2023 1:21 PM CDT Encounter for screening for lipid disorder ALBUMIN CREATININE RATIO, URINE Routine 09/13/2023 1:21 PM CDT History of gestational diabetes from Last 3 Months or Most Recently Relevant to Health Maintenance Results * eGFR (09/24/2023 2:46 AM CDT) eGFR >90 >=60 mL/min/1. 73 m2 Comment: Interpretive Data Reference Interval Normal >/= 90 mL/min/1.73m2 Mildly decreased* 60 - 89 mL/min/1.73m2 Mildly to moderately decreased 45 - 59 mL/min/1.73m2 Moderately to severely decreased 30 - 44 mL/min/1.73m2 Severely decreased 15 - 29 mL/min/1.73m2 Kidney Failure < 15 mL/min/1.73m2 *Relative to young adult level Estimated glomerular filtration rate is determined by the 2020 CKD-EPI equation recommended by the National Kidney Foundation (A Unifying Approach to GFR Estimation: Recommendations of the NKF-ASK Task Force on Reassessing the Inclusion of Race in Diagnosing Kidney Disease, JASN 2020). The CKD-EPI equation should not be used for patients with unstable renal function and has not been validated in children and those over 70. Current interpretive data was last reviewed 2021. Blood 09/24/2023 2:46 AM CDT 09/24/2023 3:01 AM CDT Stephen Paul DO LAB BLOOD ORDERABLES F inal Result [facility]) [address] [facility] Department [place] [address] * Hepatitis C antibody Blood (09/13/2023 1:21 PM CDT) Hep C Ab Nonreactive Nonreactive Comment: Interpretive Data Nonreactive: Antibodies to HCV not detected. Does NOT exclude the possibility of recent exposure to HCV. Equivocal: Equivocal for HCV antibodies. Supplemental molecular testing will be automatically performed to determine infection status in accordance with current CDC screening recommendations. Reactive: Positive for HCV antibodies. This may represent current or past HCV infection. Supplemental molecular testing will be automatically performed to determine current infection status in accordance with current CDC screening recommendations. Interpretive data was last revised on 2019. Testing performed by: [address] [address] Blood 09/13/2023 1:21 PM CDT 09/13/2023 5:42 PM CDT Corrine Louis TROUBLE LINEMAN LAB MICROBIOLOGY - GENERAL ORDER ISAAC Final Result Performing Organization Address City/[facility] Co de Phone Number [facility]IA CHRISTA ([facility]) [address] [facility] [place] [address] * Albumin Creatinine Ratio, Urine (09/13/2023 1:21 PM CDT) Albumin Ur <12.0 mg/L Comment: Interpretive Data No reference range established. Current interpretive data was last revised 2018. Testing performed by: [facility], [address] [place] [address]., [id number] Creatinine Ur 31.3 mg/dL TALIA GOODWIN ([place]) Comment: Interpretive Data No reference range established. Current interpretive data was last revised 2018. Testing performed by: [address] [address] Albumin Creatinine Ratio, Ur See Comment 1 - 29 [facility] GOODWIN ([place]) Comment: Unable to calculate Testing performed by: [address] [id number] Urine 09/13/2023 1:21 PM CDT 09/13/2023 5:52 PM CDT Corrine Louis TROUBLE LINEMAN LAB URINE ORDERABLES Final Resul t Performing Organization Address [facility] Co de Phone Number TALIA GOODWIN ([place]) [address] [facility] [place] [address] * (ABNORMAL) Hemoglobin A1c (09/13/2023 1:21 PM CDT) Hgb A1C 7.4(H) 4.0 - 5.6 % Comment:Testing performed by : [facility], [address] [place] [address]., [id number] Estimated Average Glucose 166 mg/dL TALIA GOODWIN ([place]) Comment: The ADA recommends reporting an estimated Average Glucose (eAG) with all Hemoglobin A1c results using the equation derived from a study of 507 normal and diabetic adults. Minority populations were underrepresented and children were not included. (Diabetes Care 31:0038-9328, 2008). The eAG is not equivalent to a fasting glucose. Testing performed by: [facility], [address] [place] [address]., [id number] Blood 09/13/2023 1:21 PM CDT 09/13/2023 5:42 PM CDT us Corrine Louis NP LAB BLOOD ORDERABLES Final Resul t [facility] ([place]) [address] [facility] Department [place] [address] * (ABNORMAL) Lipid panel (09/13/2023 1:21 PM CDT) Cholesterol 202(H) 30 - 199 mg/dL Comment: Interpretive Data Ages < or = 19 years Acceptable: <170 mg/dL Borderline high: 170-199 mg/dL High: >or= 200 mg/dL Ages > or = 20 years Desirable: <200 mg/dL Borderline high: 200-239 mg/dL High: >or= 240 mg/dL Literature References: 1. Expert Panel on Integrated Guidelines for Cardiovascular Health and Risk Reduction in Children and Adolescents. Pediatrics 2011;128:S213 2. NCEP Expert Panel. Circulation 2004;110:227 Current Interpretive Data was last revised on 2017. Testing performed by: [facility], [address] [place] [address], [place]., [address] Triglycerides 105 <=149 mg/dL [facility] GOODWIN ([place]) Comment: Interpretive Data Ages < or = 9 years Acceptable: <75 mg/dL Borderline high: 75-99 mg/dL High: >or= 100 mg/dL Ages 10 to 20 years Acceptable: <90 mg/dL Borderline high: 90-129 mg/dL High: >or= 130 mg/dL Ages > or = 20 years Desirable: <150 mg/dL Borderline high: 150-199 mg/dL High: 200-499 mg/dL Very high: >or= 499 mg/dL Literature References: 1. Expert Panel on Integrated Guidelines for Cardiovascular Health and Risk Reduction in Children and Adolescents. Pediatrics 2011;128:S213 2. NCEP Expert Panel. Circulation 2004;110:227 Current Interpretive Data was last revised on 2017. Testing performed by: [facility], [address] [place] [address]., [id number] HDL 41 >=40 mg/dL [facility] ([facility]) Comment: Interpretive Data Ages < or = 19 years Acceptable: >45 mg/dL Borderline low: 40-45 mg/dL Low: <40 mg/dL Ages > or = 20 years Desirable: >or= 60 mg/dL Low: <40 mg/dL Literature References: 1. Expert Panel on Integrated Guidelines for Cardiovascular Health and Risk Reduction in Children and Adolescents. Pediatrics 2011;128:S213 2. NCEP Expert Panel. Circulation 2003;110:227 Current Interpretive Data was last revised on 2017. Testing performed by: [facility], [address] [place] [address]., [address] LDL, calculated 140(H) <=129 mg/dL [facility] ([place]) Comment: Interpretive Data Ages < or = 19 years Acceptable: <110 mg/dL Borderline high: 110-129 mg/dL High: >or= 130 mg/dL Ages > or = 20 years Optimal: <100 mg/dL Near optimal: 100-129 mg/dL Borderline high: 130-159 mg/dL High: >160 mg/dL Literature References: 1. Expert Panel on Integrated Guidelines for Cardiovascular Health and Risk Reduction in Children and Adolescents. Pediatrics 2011;128:S213 2. NCEP Expert Panel. Circulation 2004;110:227 Current Interpretive Data was last revised on 2017. Testing performed by: [facility], [address] [place] [address]., [id number] Non-HDL Cholesterol 161 mg/dL [facility] ([place]) Comment: Interpretive Data Ages < or = 19 years Acceptable: <120 mg/dL Borderline high: 120-144 mg/dL High: >145 mg/dL Ages > or = 20 years When triglycerides are >200 mg/dL, Non-HDL cholesterol is a secondary target of therapy with treatment goals that are 30 mg/dL greater than the LDL cholesterol target. Literature References: 1. Expert Panel on Integrated Guidelines for Cardiovascular Health and Risk Reduction in Children and Adolescents. Pediatrics 2011;128:S213 2. NCEP Expert Panel. Circulation 2004;110:227 Current Interpretive Data was last revised on 2017. Testing performed by: [facility], [address] [place] [address]., [id number] Chol/HDL ratio 5 ALTAG[facility]ACIA [facility] ([place]) Comment:Testing performed by : [facility], [address] [place] [address]., [id number] Blood 09/13/2023 1:21 PM CDT 09/13/2023 5:42 PM CDT us Corrine Louis NP LAB BLOOD ORDERABLES Final Resul t [facility] ([place]) [address] [facility] Department [place] [address] from Last 3 Months or Most Recently Relevant to Health Maintenance Insurance [facility] CHOICE PLUS [facility] CHOICE PLUS Advance Directives For more information, please contact: [phone] * Full Code (Latest Code Status on File) Date Activated Date Inactivated Comments 09/21/2023 8:11 PM 09/24/2023 3:42 PM Care Teams Special Tax Auditor Relationship Specialty Start Date End Date Corrine Louis NP PCP - General Family Medicine 09/10/23 Miscellaneous, Not In File 09/24/23
--- OUTSIDE RECORDS SUMMARY | 2024-08-29 18:27 | XMS_ITS | Clinical Summary ---
Author Organization [facility] Address [address] [place] [address] Phone Care Team Providers Care Sat Tutor Name Role Phone Corrine Louis BINDERY ASSISTANT Primary Care Provider Miscellaneous, Not In File Unavailable Unava ilable Allergies Active Allergy Reactions Criticality Noted Date Comments Aspirin Swelling High 09/10/2023 Medications albuterol HFA (PROVENTIL HFA,VENTOLIN HFA,PROAIR HFA) 90 mcg/actuation inhalerIndications :Acute cough Inhale 2 puffs every 6 (six) hours as needed for wheezing 1 each 1 09/10/19 Active SUMAtriptan (IMITREX) 50 mg tabletIndications: Migraine without aura and without status migrainosus, not intractable Take 1 tablet (50 mg total) by mouth once as needed for migraine May repeat after 2 hours. 9 tablet 1 09/10/19 025 Active metFORMIN (GLUCOPHAGE) 500 mg tabletIndications: Type 2 diabetes mellitus with hyperglycemia, without long-term current use of insulin (HCC) Take 1 tablet (500 mg total) by mouth daily with breakfast 90 tablet 1 09/14/19 24 025 Active atorvastatin (LIPITOR) 10 mg tabletIndications: [...] tablet 09/24/19 24 Active blood-glucose meter (FreeStyle [place] Lite) kit TEST DIRECTED TWICE A DAY [...] were normal Last pap 2016 Referral to MACHINE TOOL REBUILDER placed Resolved Problems Problem Noted Date Diagnosed Date Resolved Date Sepsis without acute organ d ysfunction, due to unspecified organism 09/21/2023 10/27/2023 Anemia 11/24/2016 09/22/2023 Overview (08/31/2023): PATIENT HAD BLOOD TRANSFUSION X2 Encounters Date Type Department Care Team Description 08/09/2024 Telephone [facility] [address] [place] [address] Corrine Louis NP Reschedule Appointment from Last 3 Months Immunizations Immunization Administration Dates Next Due Influenza, Trivalent, Preser vative Free, Intramuscular 2013,02/01/2012 Influenza, Unspecified 09/08/2023(Deferr ed: Patient Refused),03/11/2023(Deferred: Patient Refused),02/07/2022(Deferred: Patient Refused) Pneumococcal Polysaccharide PPV23 02/18/2012 Tdap 02/18/2012 Surgical History Surgery Date Site/Laterality Comments EYE SURGERY Medical History Medical History Date Comments Diabetes mellitus (HCC) Sepsis (HCC) 09/21/2023 caused by cellul rolando BRENNAN d/c from [facility] 09/23 Family History Medical History Relation Name Comments No Known Problems Father Asthma Mother Mom Relation Name Status Comments Father Alive Mother Mom Alive Social History Tobacco Use Types Packs/Day Years Used Date Smoking Tobacco: Every Day Cigarettes Smokeless Tobacco: Never Tobacco Cessation:Ready to Q uit: Not Asked; Counseling Given: Not Answered Alcohol Use Standard Drinks/Week Comments Yes 0 (1 standard drink = 0.6 oz pur e alcohol) occasionally [employer] Utilities Answer Date Recorded In the past 12 months has e [employer], gas, oil, or water [employer] threatened to shut off services in your [...] often do you attend chur ch or anabaptism services? Never 09/28/2023 Do you belong to any clubs o r organizations such as oriental orthodox groups, unions, fraternal or athletic groups, or [...] staff should administer the PHQ-9) 0 09/28/2023 [facility] - Occupational Stress [...] place to sleep or slept in a alf (including now)? No 09/22/2023 PHQ-9 Answer Date [...] any time in the past 12 m [facility], were you homeless or living in a alf (including now)? 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 Gender Identity Female 07/13/2023 8:14 AM RETIREMENT SALES CONSULTANT Sexual Orientation Not on file Obstetrics History Last Filed Vital Signs Vital Sign Reading [...] 10/27/2023 10:33 AM CDT Plan of Treatment Health Maintenance Due Date Last Done Comments Cervical Cancer Screening 1985 Dilated Eye Exam 1985 Foot Exam 1985 Regular Well Visit/Exam 18-64 2003 DTaP/Tdap/Td Vaccine (2 - Td or Tdap) 02/17/2022 02/18/2012 Hemoglobin A1C 03/15/2024 09/13/2023 Pneumococcal vaccine <65 (2 of 2 - PCV) 08/25/2024 02/18/2012 Postponed from 02/17/2013 (Patient declined, but will receive in the future) Albumin Creatinine Ratio, Urine 09/12/2024 09/13/2023 Lipid Panel 09/12/2024 09/13/2023 eGFR 09/23/2024 09/24/2023, 09/07, 09/22/2023, Additional history exists Depression Screening 09/27/2024 09/28/2023, 09/10/19 Influenza Vaccine (Season Ended) 2025 2013, 02/01/2012 Hepatitis B Screening Completed 09/13/2023 Hepatitis C Screening Completed 09/13/2023 HPV Vaccines Aged Out No longer eligi ble based on patient's age to complete this topic Varicella Vaccines Discontinued Procedures Procedure Name Priority Date/Time Associated Diagnosis [...] DO LAB BLOOD ORDERABLES F inal Result Performing Organization Address City/[facility]/ZIP Co de Phone Number [facility]) [address] [facility] [place] [address] * Hepatitis C antibody Blood (09/13/2023 1:21 [...] last revised on 2019. Testing performed by: [facility], [address] [place] [address], [place]., [address] Blood 09/13/2023 1:21 PM CDT 09/13/2023 5:42 PM CDT us Corrine Louis NP LAB MICROBIOLOGY - GENERAL ORDER ISAAC Final Result Performing Organization Address City/[facility] Co de Phone Number [facility]) [address] [facility] [place] [address] * Albumin Creatinine Ratio, Urine (09/13/2023 1:21 PM CDT) Albumin Ur <12.0 mg/L Comment: Interpretive Data No reference range established. Current interpretive data was last revised 2018. Testing performed by: [address] [address] Creatinine Ur 31.3 mg/dL TALIA [facility] ([place]) Comment: Interpretive Data No reference range established. Current interpretive data was last revised 2018. Testing performed by: [address] [address] Albumin Creatinine Ratio, Ur See Comment 1 - 29 TALIA [facility] ([place]) Comment: Unable to calculate Testing performed by: [address] [id number] Urine 09/13/2023 1:21 PM CDT 09/13/2023 5:52 PM CDT Corrine Louis NP LAB URINE ORDERABLES Final Resul t [facility]IA [facility] ([place]) [address] [facility] Department of [place] [address] * (ABNORMAL) Hemoglobin A1c (09/13/2023 1:21 PM CDT) Pathologist [facility] Hgb A1C 7.4(H) 4.0 - 5.6 % Comment:Testing performed by : [address] [address] Estimated Average Glucose 166 mg/dL TALIA [facility] ([place]) Comment: The ADA recommends reporting an estimated Average Glucose (eAG) with all Hemoglobin A1c results using the equation derived from a study of 507 normal and diabetic adults. Minority populations were underrepresented and children were not included. (Diabetes Care 31:2196-4104, 2008). The eAG is not equivalent to a fasting glucose. Testing performed by: [address] [address] Blood 09/13/2023 1:21 PM CDT 09/13/2023 5:42 PM CDT us Corrinezeferino Louis NP LAB BLOOD ORDERABLES Final Resul t [facility] ([place]) [address] [facility] Department [place] [address] * (ABNORMAL) Lipid panel (09/13/2023 1:21 PM [...] last revised on 2017. Testing performed by: [facility], [address] [place] [address]., [id number] Triglycerides 105 <=149 mg/dL TALIA [facility] ([place]) [...] last revised on 2017. Testing performed by: [facility], [address] [place] [address]., [id number] HDL 41 >=40 mg/dL TALIA [facility]WIN ([place]) Comment: Interpretive Data [...] last revised on 2017. Testing performed by: [facility], [address] [place] [address]., [address] LDL, calculated 140(H) <=129 mg/dL TALIA [facility] ([place]) Comment: Interpretive Data [...] last revised on 2017. Testing performed by: [facility], [address] [place] [address]., [id number] Non-HDL Cholesterol 161 mg/dL TALIA [facility] ([place]) Comment: Interpretive Data [...] last revised on 2017. Testing performed by: [address] [address] Chol/HDL ratio 5 GERALDINENE Jada [facility] ([place]) Comment:Testing performed by : [facility], [address] [place] [address]., [id number] Blood 09/13/2023 1:21 PM CDT 09/13/2023 5:42 PM CDT us Corrine Louis NP LAB BLOOD ORDERABLES Final Resul t [facility]) [address] [facility] Department of [place] [address] from Last 3 Months or Most Recently Relevant to Health Maintenance Insurance [facility] H[facility]/PPO Address: [address] [place] [address] [facility] H[facility]/PPO Address: [address] [place] [address] Advance Directives For more information, please contact: [phone] * Full Code (Latest Code Status on File) Date Activated Date Inactivated Comments 09/21/2023 8:11 PM 09/24/2023 3:42 PM Care Teams Sat Tutor Relationship Specialty Start Date End Date Corrine Louis NP PCP - General Family Medicine 09/10/23 Miscellaneous, Not In File 09/24/23
== END 2024-08-29 18:28 | disposition home or self-care (01) ==
PROVIDERS: Emergency Provider Nurse Practitioner Family; PCP Nurse Practitioner
DX: J06.9 Acute upper respiratory infection, unspecified (principal)
CPT/HCPCS: 99203; G0463